=== PATIENT | male | born 1970 | race Caucasian/White ===

== ENCOUNTER 2023-10-17 11:22 | Emergency (ER) | payer MEDICAID ==
[~2023-10-17] VITALS: Ht 177.8 cm; Wt 90.7 kg
[2023-10-17 11:24] VITALS: BP 117/87; PULSE 72; RESP 17; TEMP 97.6; O2SAT 98
== END 2023-10-17 12:41 | disposition home or self-care (01) ==
LOC: MED 11:22
DX: R06.02 Shortness of breath (principal); F41.9 Anxiety disorder, unspecified; F15.10 Other stimulant abuse, uncomplicated; F17.210 Nicotine dependence, cigarettes, uncomplicated
CPT/HCPCS: 93005; 99283